=== PATIENT | female | born 1960 | race Caucasian/White ===

== ENCOUNTER 2025-10-09 13:10 | Emergency (ER) | payer SELFPAY ==
[2025-10-09] VITALS (8 sets, daily range): BP systolic 87–152; BP diastolic 69–86; PULSE 63–87; RESP 13–17; TEMP 36.5–36.6; O2SAT 95–100; BMI 24.7
[2025-10-09] MEDS: 0.9% Normal Saline (1000mL) 1,000 ML 999 ML IV (15:26)
--- NOTE | 2025-10-09 15:26 | EKG12_ITS ---
Test Reason : Blood Pressure : */* mmHG Vent. Rate : 68 BPM Atrial Rate : 68 BPM P-R Int : 188 ms QRS Dur : 66 ms QT Int : 466 ms P-R-T Axes : 54 -8 70 degrees QTcB Int : 495 ms Normal sinus rhythm Possible Inferior infarct , age undetermined QTcB >= 480 msec Abnormal ECG Confirmed by Pete Tanner ([id number]), acquisitions editor SABA JIANG ([id number]) on 10/14/2025 9:07:58 AM Referred By: VALERIE Confirmed By: Pete Tanner
--- NOTE | 2025-10-09 15:26 | RAD_ITS ---
PROCEDURE: FOOT MIN 3 VIEWS 10/09/2025 REASON FOR EXAM: CABAN/SWELLING TECHNIQUE: Procedure Code: RADFO Modality: DX Procedure: FOOT MIN 3 VIEWS COMPARISON: None. FINDINGS: Bones: High arch noted. Distal tibia and fibula otherwise negative. Tarsals metatarsals and phalanges otherwise negative. Joints: Negative for joint space narrowing. Soft tissues: Soft tissue swelling overlying the dorsum of the foot.. Negative for radiopaque foreign body. Other: Adjacent soft tissues otherwise negative. Remainder of exam negative. RAD/Foot min 3 Views IMPRESSION: Dorsal soft tissue swelling but no fracture or underlying radiopaque foreign kian dy. Reading Location: [id number]
--- NOTE | 2025-10-09 15:26 | RAD_ITS ---
PROCEDURE: CHEST 1 VIEW (PORTABLE) 10/09/2025 REASON FOR EXAM: HYPOTENSION TECHNIQUE: Frontal view of the chest. COMPARISON: None FINDINGS: Hardware and support lines: None. Heart: Negative. Lungs: Negative for infiltrates, or pulmonary edema. Pleura: No pleural thickening. No pleural effusion. Mediastinum and aorta: Negative for hilar adenopathy. Mildly tortuous thoracic aorta. Bones: Slight degenerative changes in the shoulders. Age-appropriate degenerative changes of the spine. Other: Remainder of the exam negative. RAD/Chest 1 View (Portable) IMPRESSION: Negative for acute cardiopulmonary disease. Reading Location: [id number]
--- NOTE | 2025-10-09 15:28 | EDS_ITS ---
HPI History of Present Illness Chief Complaint: Edema Informant: patient and family Narrative Narrative: Patient is a 65-year-old female with a history of DM, lupus, MS, fibromyalgia, and diabetic peripheral neuropathy, presenting with acute onset of right foot sw elling and erythema. - History obtained from patient and daughter at bedside. - Reports waking up this morning with a swollen right foot and erythematous left hallux. Was normal yesterday. Denies any known trauma or injury to the foot. - Experiencing pain in the foot, which worsens with ambulation. - Denies any discharge or wetness around the hallux. - Denies fever, chills, or diaphoresis and no other new symptoms except lightheadedness off and on for 3 days. - Has neuropathy and usually lacks sensation in her toes; currently unable to feel her toes, including the hallux although it hurts according to the pt. - Chronic dyspnea and cough, no change today. Chronic diffuse arthritis and pain all over, no sig changes recently. - Recent fall a few weeks ago, resulting in right shoulder pain; has not sought medical evaluation. - Has a walker and is able to ambulate. - Struggling with lupus management due to not taking medication, but cannot describe what she means with regards to her symptoms. -According to daughter patient recently was staying with her son in [place] and it was not a good situation for her, and has not filled many of her medications since she lived in [place], and we have no idea how long ago that was. [facility] Medical History Lupus (systemic lupus erythematosus) Multiple sclerosis Fibromyalgia Diabetes type 2 Home Medications ?Medication ?Instructions ?Recorded ?Last Taken ?Type cephalexin 500 mg capsule 500 mg PO Q6 #40 CAPSULES Unknown Rx insulin glargine 100 unit/mL (3 1 unit subcut QPM 09/11 11/03 Unknown History mL) subcutaneous pen (Lantus Solostar U-100 Insulin) metformin 500 mg tablet 500 mg PO BID 10/09/25 Unkno wn History Allergy/AdvReac Type Severity Reaction Status Date / Time No Known Allergies Allergy Verified 10/09/25 13:11 Surgical History History of appendectomy H/O: hysterectomy Social History Smoking Status: Current some day smoker tobacco type: cigarettes ROS ROS ED Review of Systems ROS Unobtainable: other Details: hx limited from pt - historical alternans w/ many questions; daughter helps quite a bit Constitutional Constitutional ED: Denies chills or fever(s) Eyes Eyes: Denies change in vision Cardiovascular Cardiovascular: Denies chest pain Respiratory/Chest Respiratory/Chest: Reports cough and dyspnea on exertion Gastrointestinal Gastrointestinal: Denies abdominal pain or nausea Musculoskeletal Musculoskeletal: Reports arthralgias; Denies neck pain Integumentary Denies rash Neurologic Neurologic: Reports paresthesias RLE and LLE; Denies headache(s) or weakness EXAM Physical Exam Const Vital Signs: 10/09/25 13:11 10/09/25 15:03 10/09/25 15:04 Temperature 97.8 F 97.9 F 97.9 F Temperature Source Temporal Oral Oral Pulse Rate 87 64 63 Respiratory Rate 16 17 17 Respiratory Effort Respiratory Pattern Blood Pressure 152/70 H 87/72 L 87/72 L Blood Pressure Mean 97 77 77 Pulse Ox 100 100 99 Oxygen Delivery Method Room Air Room Air Room Air 10/09/25 15:19 10/09/25 15:29 10/09/25 18:00 Temperature 97.8 F Temperature Source Oral Pulse Rate 70 Respiratory Rate 13 Respiratory Effort Normal Respiratory Pattern Normal Blood Pressure 107/86 H Blood Pressure Mean 93 Pulse Ox 97 98 Oxygen Delivery Method Room Air Room Air 10/09/25 18:10 10/09/25 18:49 Temperature Temperature Source Pulse Rate 71 Respiratory Rate 16 Respiratory Effort Respiratory Pattern Blood Pressure 107/86 H 124/69 H Blood Pressure Mean 93 87 Pulse Ox 100 Oxygen Delivery Method Room Air Positive well nourished and well developed Constitutional Narrative: Well-appearing in no distress General Appearance ED: well developed and NAD HEENT Reports moist mucous membranes normocephalic and atraumatic Eyes PERRL and EOMs intact bilaterally Neck full ROM and supple Resp normal respiratory effort and clear to auscultation bilaterally Cardio regular rate, regular rhythm and no murmurs Rate: Negative for tachycardic GI non-tender and non-distended Auscultation: normoactive bowel sounds Palpation: soft Back/Spine no CVA tenderness General Back: other FROM Extremity Extremity Narrative: Limited range of motion right shoulder due to pain but she is able to move in all directions a little. Diffusely tender no deformities. A couple of minor healing abrasions on her shins but she has diffuse significant tenderness throughout both shins, all compartments of the lower legs and the thighs are soft and nondistended. Daughter states during this that she is usually very touchy. The left great toe is mildly swollen diffusely erythematous, there is no subungual hematoma, it is mildly tender throughout but she has decreased sensation throughout all the toes due to her neuropathy, there is no subcutaneous emphysema, there is no signs of tissue or gangrene, and the erythema does not extend beyond the base of the toe. On the plantar aspect of the foot, exam is very benign there are no wounds, this includes the webspaces. There is no discharge coming from the paronychial folds or elsewhere on the toe. General Extremety ED: Yes edema; Negative for pulses abnormal General Extremity: edema left lower extremity moderate (Throughout foot only, entire dorsum without erythema or induration except for the great toe. Right foot is normal-appearing. There are no wounds either side.); Negative for pulses abnormal Neuro oriented x3, CN's II-XII intact bilaterally and no sensory deficits noted Sensorium / Orientation: awake and alert Motor Exam: strength 5/5 throughout Skin no rashes or lesions noted and no wounds Skin Narrative: Left great toe erythema see above. No other rashes or lesions except for some healing abrasions on her shins. MDM MDM MDM Narrative Medical decision making narrative: Assessment: The patient is a 65-year-old female with PMH of type 2 diabetes mellitus, lupus, multiple sclerosis, uterine fibroids, and chronic arthritis presenting for sudden onset swelling and erythema of the left great toe noted this morning. Given focal swelling, mild leukocytosis (WBC 11.3) and soft-tissue swelling on foot radiograph, uncomplicated cellulitis of the left great toe is the most likely diagnosis. Initial ED hypotension resolved after 1 L IV fluids with normal lactate (1.8) and stable orthostatics, making sepsis unlikely. Hyperglycemia (244) attributed to infection/stress in the setting of diabetes with baseline diabetic neuropathy. Right shoulder pain is consistent with remote contusion; shoulder imaging is normal. Plan: - 1 L normal saline IV bolus completed for initial low BP - Administered IV Unasyn empirically for suspected cellulitis - Discharge home on oral antibiotics (empiric coverage for skin/soft tissue infection) - Outpatient follow-up scheduled with [facility] - Return precautions and wound care instructions provided; daughter in agreement with plan Diagnostics: - Labs: WBC 11.3 K/?L (mildly elevated); lactate 1.8 mmol/L (normal); glucose 244 mg/dL (hyperglycemia) - Urinalysis ? no evidence of infection on my interpretation - X-ray left foot ? soft-tissue swelling; no fracture, dislocation, signs of osteomyelitis, or gas - X-ray right shoulder ? normal study - Chest X-ray ? normal study Reevaluations: - After 1 L IV fluids BP improved to 124/69; patient ambulated without dizziness; orthostatics negative; toe weight-bearing tolerated. Objectively swelling in left foot is decreased daughter in agreement, erythema no worse in toe and nothing to suggest necrotizing fasciitis at this time. Portions of this note were generated using voice recognition software ([employer]). I have reviewed the contents and every effort has been made to ensure accuracy; however, inadvertent errors in grammar, spelling, punctuation, or word choice may occur, that were not noted before signing the document and should not alter the intended clinical meaning. Lab Data Attestation: I reviewed the patient's lab results. Labs: Laboratory Results - last 24 hr 10/09/25 10/09/25 10/09/25 14:56 15:17 17:39 WBC 11.3 H RBC 3.75 L Hgb 11.6 L Hct 33.4 L MCV 89.1 MCH 30.9 MCHC 34.7 RDW Std Deviation 40.7 RDW Coeff of [place] 12.5 Plt Count 486 H MPV 8.6 Immature Gran % (Auto) 0.400 Neut % (Auto) 54.2 Lymph % (Auto) 35.0 [place] % (Auto) 6.3 Eos % (Auto) 3.2 Baso % (Auto) 0.9 Absolute Neuts (auto) 6.1 Absolute Lymphs (auto) 3.95 Nucleated RBC % 0 PT 12.6 INR 0.9 APTT 37.7 H Sodium 134 L Potassium 3.9 Chloride 99 Carbon Dioxide 23.9 Anion Gap 11 BUN 9 Creatinine 0.80 Estim Creat Clear Calc 63.09 Est GFR (MDRD) Non-Af 82 BUN/Creatinine Ratio 11.1 Glucose 244 H Lactic Acid 1.8 Calcium 9.3 Total Bilirubin 0.28 AST 11 ALT 7 Alkaline Phosphatase 93 Total Protein 7.4 Albumin 4.1 Globulin 3.4 Albumin/Globulin Ratio 1.2 Urine Color Straw Urine Clarity Clear Urine pH 6.5 Ur Specific Rex 1.010 Urine Protein Negative Urine Glucose (UA) Normal Urine Ketones Negative Urine Occult Blood Negative Urine Nitrite Negative Urine Bilirubin Negative Urine Urobilinogen Normal Ur Leukocyte Esterase 25 H Urine RBC 0-5 SEEN Urine WBC 0-5 SEEN Ur Squamous Epith Cells 0-5 SEEN Urine Bacteria 0 SEEN Urine Mucus 0 SEEN POC Glucose 242 H Radiography Diagnostic Testing: Clinical Impression(s) from Imaging Studies Chest X-Ray 10/09/25 15:26 IMPRESSION: Negative for acute cardiopulmonary disease. Reading Location: [facility] Foot X-Ray 10/09/25 15:26 IMPRESSION: Dorsal soft tissue swelling but no fracture or underlying radiopaque foreign body. Reading Location: [facility] Shoulder X-Ray 10/09/25 15:29 IMPRESSION: No acute fracture or dislocation. Reading Location: [facility] Rhythm Strip Rhythm Strip: Sinus Rhythm Rate: 68 Ectopy: None EKG Initial EKG: Attestation: I personally reviewed and interpreted this EKG as follows: Interpretation: Sinus Rhythm and No Acute Injury Pattern Comments: Normal axis. No AV block. Mildly long QTc. Narrow QRS. Discharge Plan Triage Chief Complaint: Edema ED Provider: Camron Fang Dx/Rx/DC Orders Clinical Impression: Cellulitis of great toe, left, Type 2 diabetes mellitus with diabetic neuropathy, Hyperglycemia due to type 2 diabetes mellitus, Contusion of right shoulder, Multiple falls Instructions: ED Cellulitis Prescriptions: New cephalexin 500 mg capsule 500 mg PO Q6 Qty: 40 0RF No Action metformin 500 mg tablet 500 mg PO BID insulin glargine [Lantus Solostar U-100 Insulin] 100 unit/mL (3 mL) insulin pen 1 unit subcut QPM Primary Care Provider: Care Physician,No Primary Referrals: Jennifer Castro Klarissa, MAINTENANCE DEPARTMENT MANAGER-C [[facility], [facility]] - As soon as possible Print Language: Welsh Disposition Disposition: Home, Self Care
--- NOTE | 2025-10-09 15:29 | RAD_ITS ---
PROCEDURE: RIGHT SHOULDER MIN 2 VIEWS 10/09/2025 REASON FOR EXAM: FALL/INJURY TECHNIQUE: Procedure Code: RADSH Modality: DX Procedure: SHOULDER MIN 2 VIEWS COMPARISON: None. FINDINGS: No acute fracture or dislocation. Alignment is anatomic. Preserved glenohumeral joint space. Mild AC joint arthrosis. No aggressive osseous lesion. No marked soft tissue swelling or unusual mineralization. RAD/Shoulder min 2 Views IMPRESSION: No acute fracture or dislocation. Reading Location: [id number]
[2025-10-09 16:15] LABS: Hematocrit 33.4 % (37-47); Hemoglobin 11.6 g/dL (12.0-15.0); Immature Granulocytes Count 0.040 X10^3/uL (0.0-0.0); Mean Corp Hgb Conc 34.7 g/dL (32-36); Mean Corpuscular Volume 89.1 fL (81-99); Mean Platelet Vol. 8.6 fl (6.2-12.0); NRBC Flagged by Analyzer 0 % (0-5); Platelet Count 486 K/mm3 (150-450); RBC Distribution Width CV 12.5 % (11.6-14.6); RBC Distribution Width SD 40.7 fl (35.1-43.9); Red Blood Count 3.75 M/mm3 (4.2-5.4); White Blood Count 11.3 K/mm3 (4.4-11.0)
[2025-10-09 16:25] LABS: AST(SGOT) 11 U/L (<=31); Alanine Aminotransfer ALT/SGPT 7 U/L (<=34); Albumin, Serum 4.1 g/dL (3.4-4.8); Alkaline Phosphatase 93 U/L (35-104); Anion Gap 11 (7-18); BUN 9 mg/dL (4-19); BUN/Creat Ratio 11.1 RATIO (10-20); Calcium,Total 9.3 mg/dL (7.6-11.0); Carbon Dioxide 23.9 mmol/L (20.0-29.0); Chloride 99 mmol/L (96-106); Estimated Creatinine Clearance 63.09 ml/min (50-250); Globulin 3.4 g/dL (2.2-4.2); Glucose 244 mg/dL (70-99); Potassium 3.9 mmol/L (3.5-5.1)
[2025-10-09] MEDS: Ampicillin/Sulbactam 3 GM in 0.9% Normal Saline (100mL MB+) 100 ML IV (16:31)
[2025-10-09 16:40] LABS: Prothrombin Time (Protime)PT. 12.6 SECONDS (11.7-14.9)
[2025-10-09 16:41] LABS: Partial Thromboplast Time 37.7 Seconds (24.1-36.2)
[2025-10-09 17:49] LABS: Mucous, Urine 0 SEEN /hpf (<or=2+)
[2025-10-09 18:14] LABS: Color, Urine Straw (Yellow); Glucose, Dipstick Normal (Normal); Ketone-Dipstick Negative (Negative); Leukocyte Esterase-Dipstick 25 /ul (Negative); Nitrite-Dipstick Negative (Negative); Occult Blood-Urine Negative /ul (Negative); Protein-Dipstick Negative (Negative); Specific Gravity, Urine 1.010 (1.002-1.030); Urine Bilirubin Dipstick Negative (Negative)
[2025-10-09 18:37] LABS: Red Blood Cells-Urine 0-5 SEEN /hpf (0-5); Squamous Epithelial Cells - UA 0-5 SEEN /hpf (5-10)
== END 2025-10-09 20:10 | disposition home or self-care (01) ==
PROVIDERS: Emergency Provider Emergency Medicine; Visit Provider Emergency Medicine
DX: L03.032 Cellulitis of left toe (principal); E11.65 Type 2 diabetes mellitus with hyperglycemia; E11.40 Type 2 diabetes mellitus with diabetic neuropathy, unspecified; R60.0 Localized edema; R29.6 Repeated falls; Z79.84 Long term (current) use of oral hypoglycemic drugs
CPT/HCPCS: 71045; 73030; 73630; 80053; 81001; 82962; 83605; 85025; 85610; 85730; 87040; 93005; 96361; 96365; 96366; 99285; P9612; A4216; J0295